=== PATIENT | male | born 2000 | race Caucasian/White ===

== ENCOUNTER 2023-08-18 09:41 | Emergency (ER) | payer BC ==
[~2023-08-18] VITALS: Ht 180.3 cm; Wt 90.9 kg
[2023-08-18] MEDS: ONDANSETRON 4MG 2ML VIAL IV ONE (11:06)
[2023-08-18] MEDS: NS 1,000 ML IV ONE (11:06)
[2023-08-18] MEDS: MORPHINE 4 MG/ML 1ML VIAL IV ONE (11:06)
[2023-08-18] MEDS: LIDOCAINE 1% MDV 20ML VIAL SC ONE (11:25)
[2023-08-18] MEDS: BOOSTRIX VACCINE (TETANUS/DIPHTH/ACEL. PERTUSSIS) 0.5ML SYR IM ONE (11:30)
[2023-08-18 11:31] LABS: BASO # 0.1 10^3/uL (0.0-0.2); BASO % 0.6 % (0.0-1.0); EOS # 0.1 10^3/uL (0.0-0.5); EOS % 0.4 % (0.0-3.0); HEMATOCRIT 41.6 % (42.0-52.0); HEMOGLOBIN 14.5 g/dl (13.5-17.5); LYMPH # 1.5 10^3/uL (1.5-5.0); MEAN CORPUSCULAR HGB CONC 34.9 g/dl (32.0-36.5); MEAN CORPUSCULAR VOLUME 80.3 fl (80.0-96.0); MONO # 0.9 10^3/uL (0.0-0.8); MONO % 6.3 % (2.0-8.0); NEUTROPHILS # 11.4 10^3/uL (1.5-8.5); NEUTROPHILS % 81.3 % (36.0-66.0); PLATELET COUNT, AUTOMATED 299 10^3/uL (150-450); RED BLOOD COUNT 5.18 10^6/uL (4.30-6.10)
[2023-08-18 12:00] LABS: ALBUMIN 4.3 G/DL (3.2-5.2); BILIRUBIN,DIRECT 0.1 MG/DL (<0.4); BILIRUBIN,TOTAL 0.5 MG/DL (0.3-1.2); TOTAL PROTEIN 7.2 G/DL (5.7-8.2)
[2023-08-18] MEDS: LIDOCAINE W/EPINEPHRINE 1% 20ML VIAL SC ONE (12:30)
[2023-08-18] MEDS: BACITRACIN OINTMENT 30GM TUBE TOP ONE (13:28)
[2023-08-18 13:29] VITALS: BP 138/88; TEMP 98.2; O2SAT 99
== END 2023-08-18 13:31 | disposition home or self-care (01) ==
LOC: EDBD 09:41 → M ED 09:41
DX: S00.03XA Contusion of scalp, initial encounter (principal); S30.810A Abrasion of lower back and pelvis, initial encounter; S20.412A Abrasion of left back wall of thorax, initial encounter; S80.812A Abrasion, left lower leg, initial encounter; S41.111A Laceration without foreign body of right upper arm, initial encounter; S81.812A Laceration without foreign body, left lower leg, initial encounter; M25.511 Pain in right shoulder; W22.8XXA Striking against or struck by other objects, initial encounter; Y92.89 Other specified places as the place of occurrence of the external cause; Y93.9 Activity, unspecified; Y99.0 Civilian activity done for income or pay; Z88.0 Allergy status to penicillin; Z88.1 Allergy status to other antibiotic agents
CPT/HCPCS: 12002; 70450; 72125; 73030; 73060; 73080; 80047; 80076; 83690; 85025; 90471; 90715; 93041; 96374; 96375; 99284; J2405

== ENCOUNTER → 2023-09-08 | Outpatient (CLI) | payer BC | LOC: M SOG 07:53 | PROVIDERS: ATTEND Physician Assistant | DX: M54.50 Low back pain, unspecified (principal) ==